=== PATIENT | female | born 1935 | race Caucasian/White ===

== ENCOUNTER 2021-06-27 14:35 | Inpatient (IN) | payer MEDICARE, OTHER ==
[~2021-06-27] VITALS: Ht 157.5 cm; Wt 90.3 kg
[2021-06-27 14:40] VITALS: BP 60/32
[2021-06-27 15:02] LABS: ABSOLUTE BASOPHILS 0.1 thou/uL (0.0-0.2); ABSOLUTE EOSINOPHILS 0.2 thou/uL (0.0-0.7); ABSOLUTE LYMPHOCYTES 2.9 thou/uL (0.8-5.3); ABSOLUTE MONOCYTES 0.6 thou/uL (0.0-1.2); BASOPHILS 0.9 %; EOSINOPHILS 3.1 %; HEMATOCRIT 31.3 % (37.0-47.0); HEMOGLOBIN 10.2 gm/dL (12.0-15.0); LYMPHOCYTES 37.2 %; MCH 27.1 pg (26.0-34.0); MCHC 32.7 g/dL (28.0-37.0); MCV 82.8 fL (80.0-100.0); MONOCYTES 7.8 %; NUCLEATED RBCS 0 /100WBC; PLATELET COUNT* 214 thou/uL (150-400); RBC 3.78 mil/uL (4.20-5.00); RDW-CV 19.3 % (10.5-14.5); WBC 7.8 thou/uL (4.0-11.0)
[2021-06-27 15:11] LABS: CALCIUM 9.2 mg/dL (8.5-10.1); CREATININE 1.6 mg/dL (0.6-1.3); POTASSIUM 4.1 mmol/L (3.5-5.1)
[2021-06-27 15:22] LABS: TOTAL BILIRUBIN 0.3 mg/dL (<0.1-1.0); TOTAL PROTEIN 7.1 g/dL (6.4-8.2)
[2021-06-27 20:00] VITALS: BP 154/48
[2021-06-27 21:31] LABS: URINE BILIRUBIN NEGATIVE (Negative); URINE BLOOD NEGATIVE (Negative); URINE CLARITY CLEAR; URINE COLOR YELLOW; URINE GLUCOSE-RANDOM TRACE (Negative); URINE KETONES TRACE (Negative); URINE LEUKOCYTES-REFLEX 1+ (Negative); URINE NITRITE-REFLEX NEGATIVE (Negative); URINE PROTEIN NEGATIVE (Negative); URINE SPECIFIC GRAVITY 1.015 (1.005-1.030); URINE UROBILINOGEN 0.2 E.U./dl (0.2-1.0)
[2021-06-27 22:30] LABS: SQUAMOUS >10 Many /LPF (0-3)
[2021-06-27 22:31] LABS: CASTS None Seen /LPF (None Seen); URINE WBC-REFLEX >25 Many /HPF (0-5)
[2021-06-27 22:32] LABS: BACTERIA-REFLEX >30 Many /HPF (None Seen); CRYSTALS None Seen /LPF (None Seen); URINE RBC 3-10 Few /HPF (0-2)
[2021-06-28] VITALS (8 sets, daily range): BP systolic 112–186; BP diastolic 60–78
--- NOTE | 2021-06-28 09:01 | EKG ---
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 : 1935 Requested By: Herber Mckeon Order Number: [id number] MD: Nelson Fritz Measurements Intervals [place] Rate: 83 P: 45 CT: 170 QRS: 53 QRSD: 83 T: 59 QT: 362 QTc: 426 Interpretive Statements Sinus rhythm Atrial premature complex Abnormal R-wave progression, early transition Baseline wander in lead(s) I,II,aVR,aVL,aVF,V2,V6 No previous ECG available for comparison Electronically Signed On 06-28-2021 9:00:58 [employer] by Nelson Fritz [email or web address] <ELECTRONICALLY SIGNED> By: Nelson Fritz MD, FACC 06/28/21 0900 1444 1444 Nelson Fritz MD, [facility] /EPI
[2021-06-28] MEDS ORDERED: HUMALOG100 UNIT/1 SUBQ (09:19)
[2021-06-28] MEDS ORDERED: JANUVIA100 MG PO (09:19)
[2021-06-28] MEDS ORDERED: LIPITOR 20 MG T20 M1 PO (09:20)
[2021-06-28] MEDS ORDERED: LISINOPRIL20 MG PO (09:20)
[2021-06-28] MEDS ORDERED: MECLIZINE HCL25 M1 PO (09:20)
[2021-06-28] MEDS ORDERED: ELIQUIS5 MG PO (09:20)
[2021-06-28] MEDS ORDERED: MELOXICAM7.5 MG PO (09:27)
[2021-06-28 14:48] LABS: ABSOLUTE BASOPHILS 0.1 thou/uL (0.0-0.2); ABSOLUTE EOSINOPHILS 0.3 thou/uL (0.0-0.7); ABSOLUTE LYMPHOCYTES 2.3 thou/uL (0.8-5.3); ABSOLUTE MONOCYTES 0.4 thou/uL (0.0-1.2); ABSOLUTE NEUTROPHILS 2.8 thou/uL (1.6-8.1); BASOPHILS 0.9 %; EOSINOPHILS 4.9 %; HEMATOCRIT 32.4 % (37.0-47.0); HEMOGLOBIN 10.5 gm/dL (12.0-15.0); LYMPHOCYTES 39.3 %; MCH 26.8 pg (26.0-34.0); MCHC 32.4 g/dL (28.0-37.0); MCV 82.9 fL (80.0-100.0); MPV 9.9 fl. (7.2-11.1); NUCLEATED RBCS 0 /100WBC; PLATELET COUNT* 208 thou/uL (150-400); POLYS 47.9 %; RBC 3.91 mil/uL (4.20-5.00); RDW-CV 19.6 % (10.5-14.5); WBC 5.9 thou/uL (4.0-11.0)
[2021-06-28 15:03] LABS: CALCIUM 9.2 mg/dL (8.5-10.1); CREATININE 1.4 mg/dL (0.6-1.3); POTASSIUM 4.5 mmol/L (3.5-5.1); TOTAL BILIRUBIN 0.2 mg/dL (<0.1-1.0); TOTAL PROTEIN 7.2 g/dL (6.4-8.2)
[2021-06-29 04:22] LABS: ABSOLUTE EOSINOPHILS 0.3 thou/uL (0.0-0.7); ABSOLUTE LYMPHOCYTES 2.3 thou/uL (0.8-5.3); ABSOLUTE MONOCYTES 0.5 thou/uL (0.0-1.2); ABSOLUTE NEUTROPHILS 3.6 thou/uL (1.6-8.1); BASOPHILS 0.8 %; EOSINOPHILS 4.2 %; HEMATOCRIT 30.6 % (37.0-47.0); HEMOGLOBIN 9.8 gm/dL (12.0-15.0); MCH 26.7 pg (26.0-34.0); MCHC 32.1 g/dL (28.0-37.0); MCV 83.2 fL (80.0-100.0); MONOCYTES 7.6 %; NUCLEATED RBCS 0 /100WBC; PLATELET COUNT* 185 thou/uL (150-400); POLYS 53.4 %; RBC 3.68 mil/uL (4.20-5.00); RDW-CV 18.9 % (10.5-14.5); WBC 6.7 thou/uL (4.0-11.0)
[2021-06-29 04:28] VITALS: BP 184/92
[2021-06-29 04:35] LABS: CALCIUM 9.2 mg/dL (8.5-10.1); CREATININE 1.1 mg/dL (0.6-1.3); POTASSIUM 4.1 mmol/L (3.5-5.1)
[2021-06-29 09:55] VITALS: BP 172/93
[2021-06-29 12:27] VITALS: BP 111/54
[2021-06-29] MEDS ORDERED: NORVASC5 MG PO (16:44)
[2021-06-29] MEDS ORDERED: LEVOFLOXACIN500 MG PO (16:48)
[2021-06-29 17:26] VITALS: BP 111/54
== END 2021-06-29 17:45 | disposition home or self-care (01) | DRG 312 ==
LOC: M.ERS 14:35 → M.TBA-ER 16:14 → M.2W 06-28 22:08
PROVIDERS: Family Medicine; ADMIT Internal Medicine; ATTEND Internal Medicine
DX: I95.2 Hypotension due to drugs (principal); G93.41 Metabolic encephalopathy; N17.9 Acute kidney failure, unspecified; N39.0 Urinary tract infection, site not specified; Z20.822 Contact with and (suspected) exposure to COVID-19; E78.5 Hyperlipidemia, unspecified; I12.9 Hypertensive chronic kidney disease with stage 1 through stage 4 chronic kidney disease, or unspecified chronic kidney disease; E11.22 Type 2 diabetes mellitus with diabetic chronic kidney disease; N18.9 Chronic kidney disease, unspecified; T50.905A Adverse effect of unspecified drugs, medicaments and biological substances, initial encounter; Y92.89 Other specified places as the place of occurrence of the external cause; Z90.711 Acquired absence of uterus with remaining cervical stump; Z88.2 Allergy status to sulfonamides; Z88.8 Allergy status to other drugs, medicaments and biological substances; Z79.4 Long term (current) use of insulin